=== PATIENT | male | born 1945 ===

== ENCOUNTER 2024-03-20 07:01 | Day surgery (SDC) | payer MEDICARE ==
[2024-03-20] MEDS: LACTATED RINGERS 1,000 ML IV ONE ×2 (07:11→09:15)
[2024-03-20] MEDS ORDERED: LIDOCAINE-MPF 2% 5 ML VIAL ONE (07:56)
[2024-03-20] MEDS ORDERED: PROPOFOL 500 MG/50 ML 500 MG/50 ML VIAL ONE (07:56)
--- NOTE | 2024-03-20 08:46 | ANESTHESIA ---
Pre-Anesthesia VS, & Labs - Diagnosis screening - Procedure colonoscopy Vital Signs: Temp Pulse Resp BP Pulse Ox O2 Flow Rate 36.2 C L 63 18 142/79 H 100 03/20/24 07:12 03/20/24 07:12 03/20/24 07:12 03/20/24 07:12 03/20/24 07:12 Height: 6 ft 2 in Weight (kg): 82 kg Body Mass Index: 23.2 BMI Classification: Normal - NPO >8 hours Last Fluid Intake: 0400 - Lab Results Lab results reviewed: Yes Home Medications and Allergies Home Medications: Ambulatory Orders Latanoprost 0.005% Ophth Drops [Xalatan Ophth Drops] 1 drops [facility] HS 03/17/24 Latanoprost 0.005% Ophth Drops [Xalatan Ophth Drops] 1 drops [facility] 03/17/24 Allergies/Adverse Reactions: Allergies Allergy/AdvReac Type Severity Reaction Status Date / Time No Known Drug Allergies Allergy Verified 03/20/24 07:21 Anes History & Medical History - Anesthetic History Anesthesia Complications: reports: No previous complications Family history of Anesthesia Complications: Denies - Medical History Cardiovascular: reports: None Pulmonary: reports: None Gastrointestinal: reports: None Urinary: reports: None Musculoskeletal: reports: Osteoarthritis, Chronic back pain Endocrine/Autoimmune: reports: None Skin: reports: None Smoking Status: Never smoker Psychosocial: reports: No issues indicated Results - EKG Results EKG Comparison: Reviewed EKG Exam General: Alert, Oriented x3 Dental: WNL Mouth Openin Fingerbreadth Neck Mobility: Normal Mallampati classification: II Thyromental Distance: 4-6 cm Respiratory: Lungs clear Cardiovascular: Regular rate Plan Anesthesia Type: Total IV Consent for Procedure(s) Verified and Reviewed: Yes Code Status: Attempt Resuscitation ASA classification: 2-Mild systemic disease Is this case an emergency?: No
[2024-03-20 09:39] VITALS: O2SAT 98
[2024-03-20 09:49] VITALS: BP 113/71
--- NOTE | 2024-03-20 11:52 | ANESTHESIA POST OP EVALUATION ---
Anesthesia Post Eval - Post Anesthesia Eval Vitals: Last Vital Signs Temp 36.5 C 03/20/24 09:44 Pulse 64 03/20/24 09:44 Resp 17 03/20/24 09:44 BP 113/71 03/20/24 09:44 Pulse Ox 98 03/20/24 09:44 O2 Flow Rate CV Function Including HR & BP: Stable Pain Control: Satisfactory Nausea & Vomiting: Negative Mental Status: Baseline Respiratory Status: Airway Patent Hydration Status: Satisfactory Anesthesia Complications: None
== END 2024-03-20 07:02 | disposition home or self-care (01) ==
LOC: SDS 07:01
PROVIDERS: ATTEND Surgery
DX: K92.1 Melena (principal); K64.2 Third degree hemorrhoids; K57.30 Diverticulosis of large intestine without perforation or abscess without bleeding; Z80.0 Family history of malignant neoplasm of digestive organs
CPT/HCPCS: 45378; J7120